=== PATIENT | female | born 1955 | race Caucasian/White ===

== ENCOUNTER → 2019-09-17 11:08 | Outpatient (CLI) | payer MEDICARE, MEDICAID, SELFPAY ==
--- NOTE | 2019-09-17 | DI.MRI.S_ITS ---
PROCEDURE: MR LUMBAR SPINE WO CON INDICATIONS: LOW BACK PAIN TECHNIQUE: Noncontrast sagittal T1 spin echo and T2 fast echo, sagittal STIR, axial T1 and T2 fast spin echo through the lumbar spine. In cases with scoliosis, additional coronal T2 fast spin echo may be performed. COMPARISON: None. FINDINGS: Image quality: Excellent. Alignment and Curvature: Five lumbar vertebrae are assumed. The lowest fully formed intervertebral disc is assigned the L5-S1 designation in the remaining levels are numbered accordingly. 2 mm anterolisthesis of L4 and L5. No pars defect. Otherwise normal alignment. Bone Marrow: Discogenic marrow edema at the opposing L2-L3 endplates. No suspicious focal marrow signal abnormality. Spinal Cord: Normal position and appearance of the conus. Visualized cord demonstrates normal signal and size. Paraspinous Soft Tissues: No paravertebral masses. L1-L2: No spinal canal or neural foraminal stenosis. There is disc desiccation and height loss with posterior osteophytic ridging blending with calcification of the annulus there is a small posterior annular fissure. L2-L3: Disc desiccation and height loss with diffuse disc folds slightly flattening the ventral thecal sac. No mass effect upon the traversing nerve roots. Mild foraminal stenosis on the left related to disc bulge and posterior osteophytic ridging along with mild facet hypertrophy. L3-L4: No spinal canal or neural foraminal stenosis. L4-L5: Disc bulge flattens the ventral thecal sac. Disc material abuts and may slightly displace the descending right L5 nerve root in the right subarticular zone. These nerve roots are interposed between disc and adjacent facet (series 5 image 26). Mild neural foraminal stenosis related to neural foraminal collapse and facet hypertrophy along with disc bulge. L5-S1: Disc producing mild left neuroforaminal stenosis but no mass effect upon the traversing S1 nerve roots within the spinal canal. IMPRESSION: 1. Multilevel multifactorial degenerative changes without e definite evidence of focal nerve root impingement. Dictated by: Ken Carter M.D. on 09/17/2019 at 11:49 Approved by: Ken Carter M.D. on 09/17/2019 at 11:58
== END ==
PROVIDERS: Family Provider Ophthalmology; PCP Internal Medicine; Referring Provider Internal Medicine; Visit Provider Internal Medicine
DX: M54.5 Low back pain (principal); M47.816 Spondylosis without myelopathy or radiculopathy, lumbar region; R20.0 Anesthesia of skin
CPT/HCPCS: 72148